=== PATIENT | male | born 1980 ===

== ENCOUNTER 2023-06-29 14:37 | Emergency (ER) | payer BC, OTHER ==
[2023-06-29] MEDS ORDERED: Sodium Chloride 0.9% 1,000 ML IV ONE ×2 (14:44→15:05)
[2023-06-29] MEDS ORDERED: Thiamine 100 MG in Sodium Chloride 0.9% 100 ML IV ONE (14:44)
[2023-06-29 16:32] LABS: AMPHETAMINES,URINE NEGATIVE (NEGATIVE); BARBITURATES,URINE NEGATIVE (NEGATIVE); BENZODIAZEPINE,URINE NEGATIVE (NEGATIVE); MDMA (ECSTASY), URINE NEGATIVE (NEGATIVE); METHADONE,URINE NEGATIVE (NEGATIVE); METHAMPHETAMINES,URINE NEGATIVE (NEGATIVE); OPIATES,URINE NEGATIVE (NEGATIVE); OXYCODONE,URINE NEGATIVE (NEGATIVE); PHENCYCLIDINE,URINE NEGATIVE (NEGATIVE); TCA,URINE NEGATIVE (NEGATIVE)
== END 2023-06-29 18:32 ==
LOC: DL.ED 14:37
DX: F10.920 Alcohol use, unspecified with intoxication, uncomplicated (principal); Z02.89 Encounter for other administrative examinations
CPT/HCPCS: 36415; 80305-QW; 80307; 96361; 96365; 99283; 99285-25; J3411; J3490; J7030